=== PATIENT | female | born 1990 | race Caucasian/White ===

== ENCOUNTER 2019-01-14 18:24 | Emergency (ER) | payer MEDICAID ==
--- NOTE | 2019-01-14 19:39 | ED Physician Chart ---
ED Chief Complaint/HPI - Patient Information Date Seen:: 01/14/19 Time Seen:: 19:34 Chief Complaint:: vaginal spotting History of Present Illness:: 28 yr old female 4 14 wks pregnamt with sudden onset vag spotting at 3 am today with bloating abd pain nv fever and discomfort Allergies:: Allergies Allergy/AdvReac Type Severity Reaction Status Date / Time No Known Allergies Allergy Verified 01/14/19 18:37 Vitals:: Vital Signs - 8 hr 01/14/19 18:38 Temp 99.4 F HR 70 RR 17 BP 129/63 O2 Sat % 97 ED Review of Systems - Review of Systems General/Constitutional: Fever Skin: No skin lesions, No rash, No bruising Head: No headache, No light-headedness Eyes: No loss of vision, No pain, No diplopia ENT: No earache, No nasal drainage, No sore throat, No tinnitus Neck: No neck pain, No swelling, No thyromegaly, No stiffness, No mass noted Cardio Vascular: No chest pain, No palpitations, No PND, No orthopnea, No edema Pulmonary: No SOB, No cough, No sputum, No wheezing GI: Vomiting G/U: No dysuria, No frequency, No hematuria Card Lacer: Abnormal vaginal bleeding (vaginal spotting) Musculoskeletal: No bone or joint pain, No back pain, No muscle pain Endocrine: No polyuria, No polydipsia Psychiatric: No prior psych history, No depression, No anxiety, No suicidal ideation Hematopoietic: No bruising, No lymphadenopathy Allergic/Immuno: No urticaria, No angioedema Neurological: No syncope, No focal symptoms, No weakness, No paresthesia, No headache, No seizure, No dizziness, No confusion, No vertigo ED Past Medical History - Past Medical History Past Medical History: No significant medical hx Family Medical History - Family Member Mother History Unknown: Yes ED Physical Exam - Physical Examination General/Constitutional: Awake, Well-developed, well-nourished, Alert, No distress, GCS 15, Non-toxic appearing, Ambulatory Head: Atraumatic Eyes: Lids, conjuctiva normal, PERRL, EOMI Skin: Nl inspection, No rash, No skin lesions, No ecchymosis, Well hydrated, No lymphadenopathy ENMT: External ears, nose nl, Nasal exam nl, Lips, teeth, gums nl Neck: Nontender, Full ROM w/o pain, No JVD, No nuchal rigidity, No bruit, No mass, No stridor Respiratory: Nl effort/Exclusion, Clear to Auscultation, No Wheeze/Rhonchi/Rales Cardio Vascular: RRR, No murmur, gallop, rubs, NL S1 S2 GI: No tenderness/rebounding/guarding, No organomegaly, No hernia, Normal BS's, Nondistended, No mass/bruits, No McBurney tenderness Other GI comments:: abd fullness and pain : No CVA tenderness Extremities: No tenderness or effusion, Full ROM, normal strength in all extremities, No edema, Normal digits & nails Neuro/Psych: Alert/oriented, DTR's symmetric, Normal sensory exam, Normal motor strength, Judgement/insight normal, Mood normal, Normal gait, No focal deficits Misc: Normal back, No paraspinal tenderness ED Assessment - Assessment General Assessment: vaginal spotting early pt appears stable ED Septic Shock - . Is Septic Shock (SBP<90, OR Lactate>4 mmol\L) present?: No - <6hrs of presentation: Vital Signs: Vital Signs - 8 hr / 18:38 Temp 99.4 F HR 70 RR 17 BP 129/63 O2 Sat % 97 ED Reassessment (Disposition) - Reassessment Reassessment:: vaginal spotting early 14 wks - Diagnosis Diagnosis:: as above - Aftercare/Follow up Instructions Notes:: pt to go to ob facility - Patient Disposition Condition at Disposition:: Stable
[2019-01-14 19:53] LABS: % BASOPHILS 0.1 % (0.0-2.0); % EOSINOPHILS 2.3 % (0.0-5.0); % LYMPHOCYTES 24.8 % (20.0-50.0); % MONOCYTES 4.8 % (2.0-10.0); EOSINOPHILE ABSOLUTE 0.2 Th/cmm (0.1-0.4); HEMATOCRIT 33.4 % (41.0-60); HEMOGLOBIN 11.4 gm/dL (12-16); LYMPHOCYTE ABSOLUTE 2.6 Th/cmm (1.5-3.0); MEAN CELL VOLUME 89.6 fl (81-100); MEAN CORPUSCULAR HEMOGLOBIN 30.6 pg (27.0-31.0); MEAN CORPUSCULAR HGB CONC 34.1 pg (28.0-36.0); MONOCYTE ABSOLUTE 0.5 Th/cmm (0.3-1.0); PLATELET COUNT 298 Th/cmm (150-400); RED BLOOD COUNT 3.73 Mil/cmm (3.80-5.10); RED CELL DISTRIBUTION WIDTH 11.9 % (11.5-20.0); WHITE BLOOD COUNT 10.3 Th/cmm (4.8-10.8)
[2019-01-14 20:10] LABS: ALB/GLOB RATIO 1.2 (1.0-1.8); ALBUMIN 3.5 gm/dL (3.7-5.3); ALKALINE PHOSPHATASE 86 U/L (34-104); ANION GAP 12.8 (7.0-16.0); BILIRUBIN,TOTAL 0.4 mg/dL (0.3-1.0); BUN - UREA NITROGEN 9 mg/dL (7-25); CARBON DIOXIDE 21.9 mEq/L (21.0-31.0); CHLORIDE 105 mEq/L (98-107); CREATININE - SERUM 0.5 mg/dL (0.6-1.2); GFR AFRICAN-AMERICAN > 60.0 ml/min (>90); GFR NON AFRICAN-AMERICAN > 60.0 ml/min; GLUCOSE 87 mg/dL (70-105); POTASSIUM SERUM 3.7 mEq/L (3.5-5.1); SGOT 30 U/L (13-39); SGPT/ALT 38 U/L (7-52); SODIUM SERUM 136 mEq/L (136-145); TOTAL PROTEIN,SERUM 6.4 gm/dL (6.0-8.3)
--- NOTE | 2019-01-15 09:46 | Diagnostic Imaging Report ---
Ultrasound OB, greater than 14 weeks HISTORY: female with vaginal spotting COMPARISON: None Technique: Longitudinal and transverse sonographic sector images of the pelvis were obtained transabdominally and transvaginally. FINDINGS: Single live intrauterine gestation is seen with transverse lie and backdown presentation. The placenta is anterior position. The heart rate was 150 bpm. Amniotic fluid index is 13.6 within the range of normal. The cervix is closed measuring 4 cm. The biparietal diameter measures 2.96 cm corresponding gestational age of 15 weeks and 3 days. The head circumference measures 11.19 cm corresponding to gestational age of 15 weeks and 3 days. The abdominal circumference measures 8.95 cm corresponding to gestational age of 15 weeks and 1 day. The femoral length measures 1.7 cm corresponding gestational age of 15 weeks and 4 days. Estimated gestational age based on sonographic parameters is 15 weeks and 4 days +/-2 weeks. IMPRESSION: Single live intrauterine gestation with estimated gestational age of 15 weeks and 4 days +/-2 weeks based on sonographic parameters. Given patient's gender Oralia clinical history, continued follow-up is recommended.
== END 2019-01-14 22:20 | disposition home or self-care (01) ==
LOC: ER 18:24
DX: O26.852 Spotting complicating pregnancy, second trimester (principal); Z3A.14 14 weeks gestation of pregnancy
CPT/HCPCS: 36415-UA; 76802-TC; 80053-TC; 84702-TC; 85025-TC; 86850-TC; 86900-TC; 86901-TC